=== PATIENT | male | born 1985 | race Caucasian/White ===

== ENCOUNTER 2016-03-31 21:16 | Emergency (ER) | payer BC | END 2016-04-01 00:10 | disposition home or self-care (01) | DX: F32.9 Major depressive disorder, single episode, unspecified (principal); R45.851 Suicidal ideations; F10.129 Alcohol abuse with intoxication, unspecified; G47.30 Sleep apnea, unspecified; Z87.891 Personal history of nicotine dependence ==

== ENCOUNTER 2016-11-28 20:59 | Outpatient (CLI) | payer BC | END 2016-11-28 21:00 | disposition critical access hospital (66) | LOC: EMS 20:59 | PROVIDERS: ATTEND Surgery | DX: R45.851 Suicidal ideations (principal) | CPT/HCPCS: A0425; A0429 ==

== ENCOUNTER 2016-11-28 21:10 | Emergency (ER) | payer BC ==
--- NOTE | 2016-11-28 21:23 | ED Physician Documentation ---
PD HPI MHE - Stated complaint Stated Complaint: SI - Chief complaint Chief Complaint: MHE - History obtained from History obtained from: Patient - History of Present Illness Primary symptom: Suicidal ideation, Depression Pain level now: 0 Contributing factors: Work Recently seen: Other (Similar presentation to this ED March 2016) - Additional information Additional information: patient was at a friend's house [place], became increasingly depressed and upset regarding issues he has been having at work. He is on sertraline but has been taking it intermittently. Patient made suicidal statements to his friend ricardo and thus friend called 911. Patient admits to drinking some alcohol tonight as well. Review of Systems Cardiac: reports: Reviewed and negative Respiratory: reports: Reviewed and negative GI: reports: Reviewed and negative Psychiatric: reports: Depressed, Suicidal (admits to making statements earlier tonight, although he denies feeling suicidal at the time of this HPI). denies: Homicidal PD PAST MEDICAL HISTORY - Past Medical History Respiratory: Sleep apnea Psych: Depression, Anxiety, Panic attacks - Past Surgical History Past Surgical History: Yes - Present Medications Home Medications: Ambulatory Orders Medication Instructions Recorded Confirmed Sertraline [Zoloft] 50 mg ORAL DAILY 11/28/16 11/28/16 - Allergies Allergies/Adverse Reactions: Allergies Allergy/AdvReac Type Severity Reaction Status Date / Time shellfish derived Allergy Unknown Verified 11/28/16 21:16 - Social History Does the pt smoke?: No Smoking Status: Former smoker Does the pt drink ETOH?: Yes Does the pt have substance abuse?: No - Immunizations Immunizations are current?: Yes PD ED PE NORMAL - Vitals Vital signs reviewed: Yes - General General: Alert and oriented X 3, Well developed/nourished, Other (tearful throughout H+P) - Cardiac Cardiac: RRR, No murmur - Respiratory Respiratory: No respiratory distress, Clear bilaterally - Abdomen Abdomen: Soft, Non tender PD ED PE EXPANDED - Psych Psych: Depressed, Tearful Results - Vitals Vitals: Vital Signs - 24 hr 11/28/16 11/29/16 11/29/16 21:13 00:48 07:58 Temperature 36.9 C 36.7 C Heart Rate 87 91 Respiratory 18 18 15 Rate Blood Pressure 137/61 H 121/52 L O2 Saturation 96 97 Oxygen O2 Source Room air - Labs Labs: Laboratory Tests 11/28/16 11/28/16 11/28/16 21:50 21:50 22:21 WBC 8.0 RBC 5.00 Hgb 14.3 Hct 42.1 MCV 84.2 MCH 28.6 MCHC 34.0 RDW 13.7 Plt Count 305 MPV 7.4 Neut # 3.6 Lymph # 3.5 [place] # 0.7 Eos # 0.1 Baso # 0.1 Absolute Nucleated RBC 0.00 Nucleated RBCs 0.0 Sodium 140 Potassium 3.7 Chloride 106 Carbon Dioxide 21 Anion Gap 13.0 BUN 15 Creatinine 0.9 Estimated GFR (MDRD) 100 Glucose 102 H Calcium 9.0 Urine Color YELLOW Urine Clarity CLEAR Urine pH 6.0 Ur Specific [place] 1.025 Urine Protein TRACE Urine Glucose (UA) NEGATIVE Urine Ketones NEGATIVE Urine Occult Blood NEGATIVE Urine Nitrite NEGATIVE Urine Bilirubin NEGATIVE Urine Urobilinogen 0.2 (NORMAL) Ur Leukocyte Esterase NEGATIVE Ur Microscopic Review NOT INDICATED Urine Culture Comments NOT INDICATED Salicylates < 6.0 Urine Opiates Screen Ur Oxycodone Screen Urine Methadone Screen Ur Propoxyphene Screen Acetaminophen < 10 L Ur Barbiturates Screen Ur Tricyclics Screen Ur Phencyclidine Scrn Ur Amphetamine Screen U Methamphetamines Scrn U Benzodiazepines Scrn Urine Cocaine Screen U Cannabinoids Screen Ethyl Alcohol 213.6 11/28/16 11/29/16 22:21 06:08 WBC RBC Hgb Hct MCV MCH MCHC RDW Plt Count MPV Neut # Lymph # [place] # Eos # Baso # Absolute Nucleated RBC Nucleated RBCs Sodium Potassium Chloride Carbon Dioxide Anion Gap BUN Creatinine Estimated GFR (MDRD) Glucose Calcium Urine Color Urine Clarity Urine pH Ur Specific [place] Urine Protein Urine Glucose (UA) Urine Ketones Urine Occult Blood Urine Nitrite Urine Bilirubin Urine Urobilinogen Ur Leukocyte Esterase Ur Microscopic Review Urine Culture Comments Salicylates Urine Opiates Screen NEGATIVE Ur Oxycodone Screen NEGATIVE Urine Methadone Screen NEGATIVE Ur Propoxyphene Screen NEGATIVE Acetaminophen Ur Barbiturates Screen NEGATIVE Ur Tricyclics Screen NEGATIVE Ur Phencyclidine Scrn NEGATIVE Ur Amphetamine Screen NEGATIVE U Methamphetamines Scrn NEGATIVE U Benzodiazepines Scrn NEGATIVE Urine Cocaine Screen NEGATIVE U Cannabinoids Screen NEGATIVE Ethyl Alcohol 63.2 PD MEDICAL DECISION MAKING - ED course Complexity details: reviewed old records, re-evaluated patient, considered differential, d/w patient ED course: Held until AM for SW. machine operator farmworker interviewed patient. He was sober, cooperative, calm, and denies suicidal thoughts and wants to be discharged. SW clears patient for discharge, which I agree is appropriate at this time. Departure - Departure Disposition: Home, Self Care Clinical Impression: Depression, Alcoholic intoxication Condition: Good Instructions: ED Depression, ED Alcohol Intoxication
[2016-11-28 21:59] LABS: BASOPHILS # (AUTO) 0.1 10^3/uL (0.0-0.1); EOSINOPHILS # (AUTO) 0.1 10^3/uL (0.0-0.7); EOSINOPHILS % (AUTO) 1.1 %; HCT - HEMATOCRIT 42.1 % (42.0-52.0); HGB - HEMOGLOBIN 14.3 g/dL (14.0-18.0); LYMPHOCYTES # (AUTO) 3.5 10^3/uL (1.5-3.5); LYMPHOCYTES % (AUTO) 44.1 %; MEAN CORPUSCULAR HEMOGLOBIN 28.6 pg (27.0-31.0); MEAN CORPUSCULAR VOLUME 84.2 fL (80.0-94.0); MEAN PLATELET VOLUME 7.4 fL (7.4-11.4); MONOCYTES # (AUTO) 0.7 10^3/uL (0.0-1.0); MONOCYTES % (AUTO) 8.4 %; NEUTROPHILS # (AUTO) 3.6 10^3/uL (1.5-6.6); NEUTROPHILS % (AUTO) 45.4 %; RED CELL DISTRIBUTION WIDTH 13.7 % (12.0-15.0)
[2016-11-28 22:17] LABS: BUN - BLOOD UREA NITROGEN 15 mg/dL (6-20); CARBON DIOXIDE - CO2 21 mmol/L (21-32); CHLORIDE 106 mmol/L (101-111); CREATININE 0.9 mg/dL (0.6-1.2); GFR - MDRD 100 (>89); GLUCOSE 102 mg/dL (70-100); POTASSIUM 3.7 mmol/L (3.5-5.0); SALICYLATE < 6.0 mg/dL; SODIUM 140 mmol/L (135-145)
[2016-11-28 22:24] LABS: ACETAMINOPHEN < 10 ug/mL (10-30)
[2016-11-28 22:35] LABS: BILIRUBIN,URINE NEGATIVE (NEGATIVE)
[2016-11-28 22:37] LABS: UA CHARGE (STRIP ONLY) YES; UR CULTURE IF IND NOT INDICATED
[2016-11-29 07:58] VITALS: BP 121/52
[2016-11-29] MEDS ORDERED: IBUPROFEN 600 MG TABLET PO STA (08:33)
[2016-11-29] MEDS ORDERED: IBUPROFEN 600 MG TABLET PO ONE (08:50)
[2016-11-29] MEDS ORDERED: IBUPROFEN 400 MG TABLET PO STA (09:29)
[2016-11-29] MEDS ORDERED: IBUPROFEN 400 MG TABLET PO ONE (09:36)
== END 2016-11-29 09:36 | disposition home or self-care (01) ==
LOC: EDUNIT# → ED 21:10
DX: F32.9 Major depressive disorder, single episode, unspecified (principal); F10.120 Alcohol abuse with intoxication, uncomplicated; Y90.3 Blood alcohol level of 60-79 mg/100 ml; Z87.891 Personal history of nicotine dependence
CPT/HCPCS: 36415; 80048; 80306; 80307; 80320; 80329; 81003; 85025; 99283; 99284; A9270; 81001; 87086

== ENCOUNTER 2017-08-02 22:33 | Emergency (ER) | payer BC ==
[2017-08-02] MEDS ORDERED: DEXAMETHASONE 10 MG/ML VIAL PO STA (23:04)
[2017-08-02] MEDS ORDERED: BENZONATATE 100 MG CAPSULE PO STA (23:04)
[2017-08-02] MEDS ORDERED: IPRATROPIUM/ALBUTEROL 3 ML NEB INH STA (23:04)
[2017-08-02] MEDS ORDERED: CETIRIZINE 10 MG TABLET PO STA (23:05)
[2017-08-02] MEDS ORDERED: CHERRY SYRUP 10 ML UDC PO ONE (23:17)
--- NOTE | 2017-08-02 23:21 | ED Physician Documentation ---
PD HPI URI - Stated complaint Stated Complaint: FLU SYMPTOMS - Chief complaint Chief Complaint: Resp - History obtained from History obtained from: Patient, Friend - History of Present Illness Timing - onset: How many days ago (4) Timing duration: Days (4) Timing details: Gradual onset Pain level max: 4 Pain level now: 4 Associated symptoms: Chills, Nasal congestion, Rhinorrhea, Dry cough, Dyspnea ( wheezing). No: Fever Contributing factors: Sick contact Improves by: Rest Worsened by: Activity, Breathing Recently seen: Emergency Dept (Patient was seen at [facility] 2 days ago and diagnosed with "atypical pneumonia". Started on doxycycline. States he is feeling more short of breath.) Review of Systems Constitutional: denies: Fever Respiratory: reports: Dyspnea, Cough, Wheezing GI: denies: Vomiting, Diarrhea Skin: denies: Rash Musculoskeletal: denies: Neck pain, Back pain PD PAST MEDICAL HISTORY - Past Medical History Past Medical History: Yes Cardiovascular: None Respiratory: Sleep apnea Endocrine/Autoimmune: None GI: None : None HEENT: None Psych: Depression, Anxiety, Panic attacks Musculoskeletal: None Derm: None - Past Surgical History Past Surgical History: Yes - Present Medications Home Medications: Ambulatory Orders Medication Instructions Recorded Confirmed Sertraline [Zoloft] 50 mg ORAL DAILY 11/28/16 11/28/16 Albuterol Sulf [Ventolin Hfa 1 - 2 puffs INH Q4HR PRN #1 inhaler 08/02/17 Inhaler] Benzonatate [Tessalon Perle] 100 - 200 mg PO TID PRN #30 capsule 08/02/17 Cetirizine HCl/Pseudoephedrine 1 each PO BID PRN #30 tab.er.12h 08/02/17 [Zyrtec-D Tablet] - Allergies Allergies/Adverse Reactions: Allergies Allergy/AdvReac Type Severity Reaction Status Date / Time shellfish derived Allergy Unknown Verified 08/02/17 22:40 - Social History Does the pt smoke?: No Smoking Status: Never smoker Does the pt drink ETOH?: Yes Does the pt have substance abuse?: No - Immunizations Immunizations are current?: Yes - POLST Patient has POLST: No PD ED PE NORMAL - Vitals Vital signs reviewed: Yes - General General: Alert and oriented X 3, No acute distress - HEENT HEENT: PERRL, Ears normal, Moist mucous membranes, Pharynx benign - Neck Neck: Supple, no meningeal sign, No adenopathy - Cardiac Cardiac: RRR, Strong equal pulses - Respiratory Respiratory: No respiratory distress, Other (Diminished breath sounds bilaterally with wheezing) - Abdomen Abdomen: Soft, Non tender, Non distended - Derm Derm: Warm and dry - Neuro Neuro: Alert and oriented X 3 - Psych Psych: Normal mood, Normal affect Results - Vitals Vitals: Vital Signs - 24 hr 08/02/17 08/02/17 08/02/17 22:35 23:21 23:51 Temperature 37.7 C H 36.4 C L Heart Rate 91 94 83 Respiratory 18 18 16 Rate Blood Pressure 148/74 H 139/72 H O2 Saturation 97 97 Oxygen O2 Source Room air PD MEDICAL DECISION MAKING - ED course Complexity details: reviewed old records ([facility] emergency department records), re-evaluated patient, considered differential, d/w patient ED course: Patient is a 31-year-old male with what appears to be a viral upper respiratory infection complicated by wheezing. Given dexamethasone and nebulizer treatments here. Improved aeration and feels significantly improved. Will prescribe an inhaler for home. Will also place on antitussives medication and follow-up closely with his doctor. Patient counseled regarding signs and symptoms for which I believe and urgent re-evaluation would be necessary. Patient with good understanding of and agreement to plan and is comfortable going home at this time This document was made in part using voice recognition software. While efforts are made to proofread this document, sound alike and grammatical errors may occur. No hypoxia. No respiratory distress. Negative chest x-ray 2 days ago. Departure - Departure Disposition: 01 Home, Self Care Clinical Impression: Viral URI with cough Condition: Good Instructions: ED URI Viral W Wheezing Follow-Up: YEE TEJEDA [Primary Care Provider] - Within 1 week Prescriptions: Albuterol Sulf [Ventolin Hfa Inhaler] 1 - 2 puffs INH Q4HR PRN #1 inhaler PRN Reason: Shortness Of Air/Wheezing Benzonatate [Tessalon Perle] 100 - 200 mg PO TID PRN #30 capsule PRN Reason: Cough Cetirizine HCl/Pseudoephedrine [Zyrtec-D Tablet] 1 each PO BID PRN #30 tab.er.12h PRN Reason: Nasal Congestion Comments: Return if you worsen. Continue to use the inhaler at home. The average cough will last approximately 2-3 weeks. Discharge Date/Time: 08/02/17 23:51
[2017-08-02 23:52] VITALS: BP 139/72
== END 2017-08-02 23:51 | disposition home or self-care (01) ==
LOC: ED 22:33
DX: J06.9 Acute upper respiratory infection, unspecified (principal); B97.89 Other viral agents as the cause of diseases classified elsewhere; R05 Cough
CPT/HCPCS: 94640; 99283; A9270

== ENCOUNTER 2017-08-28 07:19 | Emergency (ER) | payer BC, OTHER ==
[2017-08-28 07:31] VITALS: BP 131/60
--- NOTE | 2017-08-28 08:01 | ED Physician Documentation ---
PD HPI LOWER EXT INJURY - Stated complaint Stated Complaint: R FOOT PX - Chief complaint Chief Complaint: Ext Problem - History obtained from History obtained from: Patient, Family - History of Present Illness PD HPI LOW EXT INJURY LOCATION: Right, Ankle Type of injury: Twist Where injury occurred: Home Timing - onset: Last night Timing - duration: Hours Timing - details: Abrupt onset, Still present Improved by: Rest, Ice, Immobilization Worsened by: Moving, Palpating Associated symptoms: Swelling Contributing factors: No: Anticoagulated Similar symptoms before: Has not had sx before Recently seen: Not recently seen - Additional information Additional information: 31-year-old male went to stepdown out of his truck last night and stepped onto some soft ground and rolled his ankle. He has pain on the lateral aspect of his ankle and he is not able to bear weight on this. He did ice it overnight and this morning he is still able to bear weight. He is complaining of pain to the lateral ankle and swelling. Review of Systems Constitutional: denies: Fever Respiratory: denies: Cough GI: denies: Vomiting Musculoskeletal: reports: Extremity pain, Joint pain, Extremity swelling, Joint swelling, Pain with weight bearing. denies: Neck pain, Back pain Neurologic: denies: Generalized weakness, Focal weakness, Numbness PD PAST MEDICAL HISTORY - Past Medical History Cardiovascular: None Respiratory: Sleep apnea Endocrine/Autoimmune: None GI: None : None HEENT: None Psych: Depression, Anxiety, Panic attacks Musculoskeletal: None Derm: None - Past Surgical History Past Surgical History: Yes - Present Medications Home Medications: Ambulatory Orders Medication Instructions Recorded Confirmed HYDROcod/ACETAM 5/325 [[place] 5/325] 1 - 2 ea PO Q6H PRN #8 tablet 08/28/17 - Allergies Allergies/Adverse Reactions: Allergies Allergy/AdvReac Type Severity Reaction Status Date / Time shellfish derived Allergy Unknown Verified 08/02/17 22:40 - Social History Does the pt smoke?: No Smoking Status: Never smoker Does the pt drink ETOH?: Yes Does the pt have substance abuse?: No - Immunizations Immunizations are current?: Yes - POLST Patient has POLST: No PD ED PE NORMAL - Vitals Vital signs reviewed: Yes (hypertensive mild ) - General General: Alert and oriented X 3, No acute distress, Well developed/nourished - HEENT HEENT: Atraumatic, PERRL, EOMI - Neck Neck: Supple, no meningeal sign - Respiratory Respiratory: No respiratory distress - Derm Derm: Normal color, Warm and dry, No rash - Extremities Extremities: No deformity, Other (There is swelling and tenderness to the lateral aspect of the right ankle over the talofibular ligament. There is not specific tenderness to the proximal 5th. There is tenderness and swelling over the dorsal aspect of the ankle and the distal n/v is intact. ) Results - Vitals Vitals: Vital Signs - 24 hr 08/28/17 07:25 Temperature 36.5 C Heart Rate 57 L Respiratory 16 Rate Blood Pressure 131/60 H O2 Saturation 98 Oxygen O2 Source Room air - Rads (name of study) right ankle Radiology: Prelim report reviewed (Impression: 1. Lateral soft tissue swelling without evidence for fracture.), EMP read indepedently, See rad report Procedures - Splint (location) right ankle Splint applied by: Nurse Type of splint: Ankle airsplint Other: Patient tolerated well, No complications, Neurovascular intact, Good alignment PD MEDICAL DECISION MAKING - ED course Complexity details: reviewed results, re-evaluated patient, considered differential, d/w patient, d/w family ED course: 31-year-old male appears to have rolled his ankle and sprained it. Is no evidence of fracture on x-ray and he is placed into an ankle stirrup. - Sepsis Event Vital Signs: Vital Signs - 24 hr 08/28/17 07:25 Temperature 36.5 C Heart Rate 57 L Respiratory 16 Rate Blood Pressure 131/60 H O2 Saturation 98 Oxygen O2 Source Room air Departure - Departure Disposition: 01 Home, Self Care Clinical Impression: Ankle sprain Qualifiers: Encounter type: initial encounter Involved ligament of ankle: calcaneofibular ligament Laterality: right Qualified Code(s): S93.411A - Sprain of calcaneofibular ligament of right ankle, initial encounter Condition: Stable Instructions: ED Sprain Ankle W X Ray Follow-Up: YEE TEJEDA [Primary Care Provider] - Prescriptions: HYDROcod/ACETAM 5/325 [[place] 5/325] 1 - 2 ea PO Q6H PRN #8 tablet PRN Reason: Pain Discharge Date/Time: 08/28/17 10:09
--- NOTE | 2017-08-28 08:54 | XRAY Report ---
Procedure Date: 08/28/2017 Accession Number: [id number] / [id number] Procedure: XR - Ankle 3 View RT CPT Code: FULL RESULT: EXAM: RIGHT ANKLE RADIOGRAPHY EXAM DATE: 08/28/2017 08:31 AM. CLINICAL HISTORY: Swelling and pain. Stepped into pothole yesterday afternoon, rolling ankle with lateral pain. COMPARISON: None. TECHNIQUE: 3 views. FINDINGS: Bones: Smooth exostosis along posterior distal tibia. No fracture or aggressive appearing osseous lesion. Joints: Normal. No effusion. No subluxations. The ankle mortise is normally aligned. Soft Tissues: Lateral soft tissue swelling. IMPRESSION: 1. Lateral soft tissue swelling without evidence for fracture. RADIA
== END 2017-08-28 10:09 | disposition home or self-care (01) ==
LOC: ED 07:19
DX: S93.411A Sprain of calcaneofibular ligament of right ankle, initial encounter (principal); X50.1XXA Overexertion from prolonged static or awkward postures, initial encounter; Y92.009 Unspecified place in unspecified non-institutional (private) residence as the place of occurrence of the external cause
CPT/HCPCS: 99283

== ENCOUNTER 2018-05-08 18:53 | Outpatient (CLI) | payer OTHER | END 2018-05-08 18:54 | disposition critical access hospital (66) | LOC: EMS 18:53 | PROVIDERS: ATTEND Surgery | DX: R45.851 Suicidal ideations (principal); F43.10 Post-traumatic stress disorder, unspecified | CPT/HCPCS: A0425; A0429 ==

== ENCOUNTER 2018-05-08 19:13 | Emergency (ER) | payer BC, OTHER ==
[2018-05-08 19:46] LABS: BASOPHILS # (AUTO) 0.1 10^3/uL (0.0-0.1); BASOPHILS % (AUTO) 0.5 %; EOSINOPHILS % (AUTO) 0.4 %; HGB - HEMOGLOBIN 15.3 g/dL (14.0-18.0); LYMPHOCYTES # (AUTO) 2.7 10^3/uL (1.5-3.5); LYMPHOCYTES % (AUTO) 23.5 %; MEAN CORPUSCULAR HEMOGLOBIN 29.2 pg (27.0-31.0); MEAN CORPUSCULAR VOLUME 85.8 fL (80.0-94.0); MEAN PLATELET VOLUME 7.8 fL (7.4-11.4); MONOCYTES % (AUTO) 8.7 %; NEUTROPHILS # (AUTO) 7.7 10^3/uL (1.5-6.6); NEUTROPHILS % (AUTO) 66.9 %; PLT - PLATELET COUNT 217 10^3/uL (130-450); RED BLOOD COUNT 5.23 10^6/uL (4.70-6.10); RED CELL DISTRIBUTION WIDTH 13.4 % (12.0-15.0); WHITE BLOOD COUNT 11.6 x10^3/uL (4.8-10.8)
[2018-05-08 19:59] LABS: ACETAMINOPHEN < 10 ug/mL (10-30); ALBUMIN 4.7 g/dL (3.2-5.5); ALBUMIN/GLOBULIN RATIO 1.4 (1.0-2.2); ALKALINE PHOSPHATASE 50 IU/L (42-121); ALT ALANINE AMINOTRANSFERASE 18 IU/L (10-60); AST ASPARTATE AMINOTRANSFERASE 16 IU/L (10-42); BUN - BLOOD UREA NITROGEN 20 mg/dL (6-20); CALCIUM 9.4 mg/dL (8.5-10.3); CARBON DIOXIDE - CO2 23 mmol/L (21-32); CHLORIDE 101 mmol/L (101-111); CREATININE 0.9 mg/dL (0.6-1.2); GFR - MDRD 98 (>89); GLUCOSE 95 mg/dL (70-100); LIPASE 33 U/L (22-51); SALICYLATE < 6.0 mg/dL; SODIUM 135 mmol/L (135-145); TOTAL PROTEIN 8.1 g/dL (6.7-8.2)
--- NOTE | 2018-05-08 20:23 | ED Physician Documentation ---
PD HPI MHE - Stated complaint Stated Complaint: SI - Chief complaint Chief Complaint: General - History obtained from History obtained from: Patient - History of Present Illness Primary symptom: Suicidal ideation, Depression. 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 Was hospitalized at [facility] for [facility] and he did not feel that it was helpful. He signed out and was given Telepsych visit post discharge. Not had appt with provider as yet. No further counseling (just the single telepsych appt).), How many months ago (many months of depression and anxiety due to PTSD/depressive attitude.) Contributing factors: Family (he felt upset at home today and told his mother he was thinking of killing himself. She called 911 for help and patient was brought here. He did not have specific plan for hurting himself.). No: Substance abuse - ETOH, Substance abuse - drugs Similar symptoms before: Diagnosis (PTSD and depression) Recently seen: Admitted (early March for similar symptoms) Review of Systems Constitutional: denies: Fever, Chills Nose: denies: Rhinorrhea / runny nose, Congestion Throat: denies: Sore throat Respiratory: denies: Cough GI: denies: Vomiting, Diarrhea Skin: denies: Rash Musculoskeletal: denies: Neck pain, Back pain PD PAST MEDICAL HISTORY - Past Medical History Cardiovascular: None Respiratory: Sleep apnea Endocrine/Autoimmune: None GI: None : None HEENT: None Psych: Depression, Anxiety, Panic attacks Musculoskeletal: None Derm: None - Past Surgical History Past Surgical History: Yes - Present Medications Home Medications: Ambulatory Orders Medication Instructions Recorded Confirmed HYDROcod/ACETAM 5/325 [[place] 5/325] 1 - 2 ea PO Q6H PRN #8 tablet 08/28/17 - Allergies Allergies/Adverse Reactions: Allergies Allergy/AdvReac Type Severity Reaction Status Date / Time shellfish derived Allergy Unknown Verified 08/02/17 22:40 - Social History Does the pt smoke?: No Smoking Status: Never smoker Does the pt drink ETOH?: Yes Does the pt have substance abuse?: No - Immunizations Immunizations are current?: Yes - POLST Patient has POLST: No PD ED PE NORMAL - Vitals Vital signs reviewed: Yes - General General: Alert and oriented X 3, No acute distress, Well developed/nourished - HEENT HEENT: Pharynx benign - Neck Neck: Supple, no meningeal sign, No adenopathy - Cardiac Cardiac: No murmur - Respiratory Respiratory: Clear bilaterally - Abdomen Abdomen: Soft, Non tender - Back Back: No CVA TTP - Derm Derm: Normal color, Warm and dry - Neuro Neuro: Alert and oriented X 3, No motor deficit, Normal speech Results - Vitals Vitals: Vital Signs - 24 hr 05/08/18 05/08/18 19:16 19:38 Temperature 36.5 C Heart Rate 61 61 Respiratory 16 16 Rate Blood Pressure 123/99 H 127/99 H O2 Saturation 98 98 Oxygen O2 Source Room air - Labs Labs: Laboratory Tests 05/08/18 05/08/18 05/08/18 19:40 19:40 19:40 WBC 11.6 H RBC 5.23 Hgb 15.3 Hct 44.9 MCV 85.8 MCH 29.2 MCHC 34.0 RDW 13.4 Plt Count 217 MPV 7.8 Neut # (Auto) 7.7 H Lymph # (Auto) 2.7 [place] # (Auto) 1.0 Eos # (Auto) 0.0 Baso # (Auto) 0.1 Absolute Nucleated RBC 0.00 Nucleated RBC % 0.0 Sodium 135 Potassium 3.8 Chloride 101 Carbon Dioxide 23 Anion Gap 11.0 BUN 20 Creatinine 0.9 Estimated GFR (MDRD) 98 Glucose 95 Calcium 9.4 Total Bilirubin 1.0 AST 16 ALT 18 Alkaline Phosphatase 50 Total Protein 8.1 Albumin 4.7 Globulin 3.4 Albumin/Globulin Ratio 1.4 Lipase 33 TSH 1.80 Urine Color Urine Clarity Urine pH Ur Specific [place] Urine Protein Urine Glucose (UA) Urine Ketones Urine Occult Blood Urine Nitrite Urine Bilirubin Urine Urobilinogen Ur Leukocyte Esterase Ur Microscopic Review Urine Culture Comments Salicylates < 6.0 Urine Opiates Screen Ur Oxycodone Screen Urine Methadone Screen Ur Propoxyphene Screen Acetaminophen < 10 L Ur Barbiturates Screen Ur Tricyclics Screen Ur Phencyclidine Scrn Ur Amphetamine Screen U Methamphetamines Scrn U Benzodiazepines Scrn Urine Cocaine Screen U Cannabinoids Screen Ethyl Alcohol < 5.0 05/08/18 22:25 WBC RBC Hgb Hct MCV MCH MCHC RDW Plt Count MPV Neut # (Auto) Lymph # (Auto) [place] # (Auto) Eos # (Auto) Baso # (Auto) Absolute Nucleated RBC Nucleated RBC % Sodium Potassium Chloride Carbon Dioxide Anion Gap BUN Creatinine Estimated GFR (MDRD) Glucose Calcium Total Bilirubin AST ALT Alkaline Phosphatase Total Protein Albumin Globulin Albumin/Globulin Ratio Lipase TSH Urine Color YELLOW Urine Clarity CLEAR Urine pH 6.0 Ur Specific [place] 1.025 Urine Protein NEGATIVE Urine Glucose (UA) NEGATIVE Urine Ketones 40 H Urine Occult Blood NEGATIVE Urine Nitrite NEGATIVE Urine Bilirubin NEGATIVE Urine Urobilinogen 0.2 (NORMAL) Ur Leukocyte Esterase NEGATIVE Ur Microscopic Review NOT INDICATED Urine Culture Comments NOT INDICATED Salicylates Urine Opiates Screen NEGATIVE Ur Oxycodone Screen NEGATIVE Urine Methadone Screen NEGATIVE Ur Propoxyphene Screen NEGATIVE Acetaminophen Ur Barbiturates Screen NEGATIVE Ur Tricyclics Screen NEGATIVE Ur Phencyclidine Scrn NEGATIVE Ur Amphetamine Screen NEGATIVE U Methamphetamines Scrn NEGATIVE U Benzodiazepines Scrn NEGATIVE Urine Cocaine Screen NEGATIVE U Cannabinoids Screen POSITIVE H Ethyl Alcohol PD MEDICAL DECISION MAKING - ED course Complexity details: considered differential (Not clear if would benefit from hospitalization. He was not sure if Crisis Center was what he wanted. Shared decision to stay in ER overnight, to be safe place, and see SW in AM. Hopefully will be able to set up counseling and follow up for him. Could Rx short term med for anxiety. ), d/w patient ED course: Patient opts to stay the night and talk with SW in the morning. Departure - Departure Clinical Impression: Post traumatic stress disorder (PTSD), Anxiety, Suicidal ideation Condition: Stable Record reviewed to determine appropriate education?: Yes
[2018-05-08 23:33] LABS: MUDS CUTOFF CONCENTRATIONS CUTOFF CONC BELOW:
[2018-05-08 23:34] LABS: BILIRUBIN,URINE NEGATIVE (NEGATIVE); GLUCOSE, URINE (UA) NEGATIVE (NEGATIVE); KETONES,URINE (UA) 40 mg/dL (NEGATIVE); LEUKOCYTE ESTERASE, URINE NEGATIVE (NEGATIVE); NITRITE,URINE NEGATIVE (NEGATIVE); OCCULT BLOOD,URINE NEGATIVE (NEGATIVE); PROTEIN,URINE NEGATIVE (NEGATIVE); UROBILINOGEN,URINE 0.2 (NORMAL) E.U./dL (NORMAL)
[2018-05-08 23:44] LABS: CLARITY,URINE CLEAR (CLEAR)
[2018-05-08 23:45] LABS: AMPHETAMINE SCREEN,URINE NEGATIVE (NEGATIVE); BENZODIAZEPINES SCREEN, URINE NEGATIVE (NEGATIVE); COCAINE SCREEN URINE NEGATIVE (NEGATIVE); METHADONE SCREEN, URINE NEGATIVE (NEGATIVE); METHAMPHETAMINES SCREEN, URINE NEGATIVE (NEGATIVE); OPIATE SCREEN, URINE NEGATIVE (NEGATIVE); OXYCODONE SCREEN, URINE NEGATIVE (NEGATIVE); PROPOXYPHENE SCREEN, URINE NEGATIVE (NEGATIVE); TRICYCLIC ANTIDEPRESSANT,URINE NEGATIVE (NEGATIVE)
--- NOTE | 2018-05-09 08:59 | ED Physician Documentation ---
ED Addendum - Addendum Addendum: 05/09/18 07:00 AM The patient's care was turned over to me by the off going emergency physician Dr. Coronado for follow-up on the recommendations from social work. Social work came and evaluated the patient in the emergency department, the patient contracts for safety and social work recommends discharge home. They recommend outpatient follow-up for ongoing management of his psychiatric issues. The patient currently does not want to be hospitalized or any new medications. The patient was instructed to return to the emergency department immediately for any worsening or any concerns.
[2018-05-09 09:07] VITALS: BP 127/75
== END 2018-05-09 09:15 | disposition home or self-care (01) ==
LOC: EDUNIT# → ED 19:13
DX: R45.851 Suicidal ideations (principal); F41.9 Anxiety disorder, unspecified; F32.9 Major depressive disorder, single episode, unspecified; F43.10 Post-traumatic stress disorder, unspecified
CPT/HCPCS: 36415; 80053; 80306; 80307; 80320; 80329; 81001; 81003; 83690; 84443; 85025; 87086; 99283

== ENCOUNTER 2018-09-13 10:43 | Outpatient (CLI) | payer OTHER | END 2018-09-13 10:44 | disposition home or self-care (01) | LOC: SC 10:43 | PROVIDERS: ATTEND Nurse Practitioner Family | DX: G47.33 Obstructive sleep apnea (adult) (pediatric) (principal); G47.00 Insomnia, unspecified | CPT/HCPCS: 99212; 99215 ==

== ENCOUNTER 2018-09-20 19:31 | Outpatient (CLI) | payer OTHER | END 2018-09-20 19:32 | disposition home or self-care (01) | LOC: SC 19:31 | PROVIDERS: ATTEND Nurse Practitioner Family | DX: G47.33 Obstructive sleep apnea (adult) (pediatric) (principal); G47.61 Periodic limb movement disorder | CPT/HCPCS: 95810 ==

== ENCOUNTER 2018-10-24 15:35 | Outpatient (CLI) | payer OTHER ==
[2018-10-24 16:52] VITALS: BP 90/60
--- NOTE | 2018-10-24 16:52 | SLEEP CARE CONSULTATION ---
Information from patient questionnaire entered by Humaira Callaway. I have reviewed and concur with the information entered by Humaira Callaway. This document represents the service I personally performed and the decisions made by me, Suzan Coronado RN, MSN, SUPERVISOR SE[employer]. History of Present Illness Initial [place] Sleepiness Scale score: 5 Current [place] Sleepiness Scale score: 3 Additional HPI information: AKIKO KEANE returns for follow up of the recently performed polysomnography. The patient was informed of the following polysomnography findings: I explained the pathophysiology behind obstructive sleep apnea. We then spent quite a bit of time discussing different treatment options. For mild obstructive sleep apnea, surgery and oral appliance are alternatives to nasal CPAP therapy but in moderate or severe cases, nasal CPAP is the most effective and reliable treatment. Because apnea is primarily in supine position, then positional management therapy could be effective. I reviewed the impact of weight changes on sleep apnea and strongly recommended losing weight. After some discussion, the patient would like to restart nasal CPAP therapy. His device was obtained through [employer] in 2014. He has not used for years and supplies need to be updated. I will change his pressure to autoCPAP set at 4- [id number] will be ordered with rationale explained. A manual titration study will be ordered if unable to find optimal pressure with office adjustments. He uses aResMed [id number]. I reviewed how CPAP machine works and what to expect when using the machine. Using CPAP every night in order to get used to it was emphasized. Patient advised to put CPAP mask on before getting into bed so as not to fall asleep without CPAP. To assist acclimation to CPAP use, it could also be used for a short time during day while reading or watching TV. The patient was instructed to call the CPAP supplier to discuss any mechanical problem that may occur. If the mask given is uncomfortable or is difficult to keep on through the night even with adjustment, contact the CPAP supplier as many will replace with another mask style if notified before 30 days. If snoring or perceives is not getting enough air or too much air from the machine, notify this office. [facility] patient education PAP tips and Non Pap treatment pamphlets reviewed and given to patient. Patient counseled not drink alcohol less than 4 hours before bedtime as it can increase snoring and apnea. Patient does not drink alcohol. Patient was cautioned about risks of drowsy driving until sleepiness symptoms resolve. Patient denies drowsy driving. Sleep Study - Polysomnography Polysomnography findings: The quality of the study is good. The patient had normal sleep efficiency. The sleep architecture was abnormal for sleep fragmentation and reduced amount of time spent in REM sleep. Respiratory monitoring showed mild obstructive sleep apnea-hypopnea (AHI = 12.6) associated with frequent arousals, oxyhemoglobin desaturation and mild hypoxia (bri oxygen saturation of 81%). The respiratory events occurred almost exclusively during supine sleep (supine AHI = 41.4; non-supine = 1.33). Snore was light in intensity. There was moderate periodic leg movement of sleep. Cardiac rhythm was normal sinus rhythm without significant arrhythmia. No abnormal behavior (parasomnia) observed during the night. Allergies and Home Medications Known drug allergies: Yes (shellfish, pollen, latex) Home medication list reviewed: Yes (no medications ) Review of Systems Review of systems same as previous: Yes Physical Exam Blood Pressure: 90/60 Cuff size: long Heart Rate: 62 O2 Saturation: 98 Height: 5 ft 11 in Weight (kg): 88.178 kg Body Mass Index: 27.1 BMI Classification: Overweight Impression and Plan 1. Obstructive Sleep Apnea-Hypopnea Syndrome, mild but severe supine, with lowest oxygen saturation of 81%. Obviously this is the cause of the patients symptoms of unrefreshed sleep, and excessive daytime sleepiness. Even with loss of significant amount of weight( 56 pounds) from first sleep study in November 2014 , he continues to have sleep apnea that is severe on his back in his preferred sleep position. As mentioned above, the patient will be started on nasal autoCPAP therapy with pressure set at 4-15 cmH2O. A manual titration study will be completed if unable to find optimal treatment pressure with office adjustments. He currently has a 4 year old CPAP that he has not used for years. He was advised to clean thoroughly as shown with sample device and update all equipment with new prescription as [facility] is [facility] if [facility] current [facility]AP as not over 5 years old. If not , I will have it checked for accuracy with a water manometer. A copy of compliance guidelines will be given for reference at check out. Because the apnea is more severe supine, I instructed to avoid sleeping supine using pillow positioning until able to start CPAP use. * Start CPAP pressure at 4-15 cmH2O * Update all supplies. * Check CPAP device for pressure accuracy. * Avoid supine sleep until can start CPAP. * Notify me if snoring with mask or feeling that the pressure is too much or too little * Attempt to lose weight * Return for follow up in 6 weeks after starts CPAP, or sooner if concerns arise I spent 100% of this 30 minute visit face to face with the patient with greater than 50% of this was spent time counseling the patient and coordination of care.
== END 2018-10-24 15:36 | disposition home or self-care (01) ==
LOC: SC 15:35
PROVIDERS: ATTEND Nurse Practitioner Family
DX: G47.33 Obstructive sleep apnea (adult) (pediatric) (principal)
CPT/HCPCS: 99212; 99214

== ENCOUNTER 2019-04-04 08:43 | Outpatient (CLI) | payer OTHER ==
[2019-04-04 09:35] VITALS: BP 120/70
--- NOTE | 2019-04-04 09:35 | SLEEP CARE CONSULTATION ---
Information from patient questionnaire entered by Humaira Callaway. I have reviewed and concur with the information entered by Humaira Callaway. This document represents the service I personally performed and the decisions made by me, Suzan Coronado, RN, MSN, LOGGING OPERATIONS INSPECTOR. History of Present Illness Previous diagnosis: Moderate (september 2018 after weight loss ), Very Severe, Obstructive Sleep Apnea-Hypopnea Syndrome AHI: 12.6 (severe 41.4 supine) Reason for follow up: other (5 month) Equipment type: CPAP [facility] Mask style: Full face Mask brand: Resmed Backup mask available: Yes Last cushion change: 5 months ago HPI additional information: Patient stopped using CPAP due to discomfort of air pressure causing him to wake bloated and uncomfortable and taking a few hours to resolve. He was not aware he could call to have pressure adjusted until he could get a an appointment. Subjective Patient concerns: reports: aerophagia, condensation in mask/hose (waking him - I looked at his device and hose temp set at 60degrees ), dry mouth, nose, throat (severe). denies: mask discomfort, air blowing in eyes, mask leak noise, epistaxis Observed to snore while using device: No Current pressure setting perceived as: too high On therapy, patient: reports: sleeping better, more rested overall (when pressure comfortable ) Initial [place] Sleepiness Scale score: 5 Current [place] Sleepiness Scale score: 10 Allergies and Home Medications Known drug allergies: No Home medication list reviewed: No Review of Systems Review of systems same as previous: Yes Physical Exam Blood Pressure: 120/70 Heart Rate: 70 O2 Saturation: 98 Height: 5 ft 11 in Weight: 219 lb 6.4 oz Body Mass Index: 30.6 BMI Classification: Obesity Class 1 Impression and Plan 1. Obstructive Sleep Apnea-Hypopnea Syndrome, mild. Patient stopped treatment last fall due to severe aerophagia and unaware he could call to change pressure so stopped until he could come in to appointment. When he uses CPAP he notes benefit in sleep quality and restfulness. No current CPAP data. Review of past data shows he was on a [id number] CPAP pressure with median pressure of 12. 1cm , 95th percentile of 14.8cm and maximum of 16.5cmH20. It was supposed to be reset at [id number] per last visit note. Thus I will drop his pressure range to [id number]. If he feels this range is still causing aerophagia or if it is insufficient, he is to call me right away to adjust for comfort. He was also experiencing dryness symptoms. This can be reduced with increasing the CPAP humidity as shown on his CPAP device and the heated hose can be increased if condensation. I gave him printed instructions with rationale for why to change settings. We changed his hose to 77 degrees and the humidity to auto with instructions how to change to manual and increase as needed. Patient's apnea severity and rationale for treatment to reduce apnea, improve sleep quality and reduce cardiovascular and cerebrovascular events was reviewed. I also reviewed the benefit of consistent device use of CPAP for depression/anxiety, PTSD. Since his apena is primarily supine, he is to avoid supine sleep with pillow positioning if unable to use CPAP. 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 He likes his new job and is working with [employer]. He is advised now to use CPAP with all sleep for his health benefit as well as his job. * * Change CPAP pressure to 5-10 cmH2O * Use CPAP with all sleep * Adjust humidity and heated hose * Notify me if snoring with mask or feeling that the pressure is too much or too little * Attempt to lose weight * Call this office if any problems using CPAP * Return for follow up in 1-2 months, or sooner if concerns arise Time Spent with Patient (minutes): 30 I spent 100% of this visit face to face with the patient with greater than 50% of this was spent time counseling the patient and coordination of care.
== END 2019-04-04 08:44 | disposition home or self-care (01) ==
LOC: SC 08:43
PROVIDERS: ATTEND Nurse Practitioner Family
DX: G47.33 Obstructive sleep apnea (adult) (pediatric) (principal)
CPT/HCPCS: 99212; 99214

== ENCOUNTER 2020-09-28 18:43 | Outpatient (CLI) | payer OTHER | END 2020-09-28 18:44 | disposition critical access hospital (66) | LOC: EMS 18:43 | DX: R55 Syncope and collapse (principal) | CPT/HCPCS: A0425; A0427 ==

== ENCOUNTER 2020-09-28 19:10 | Emergency (ER) | payer OTHER ==
--- NOTE | 2020-09-28 19:21 | ED Physician Documentation ---
PD HPI ALTERED MENTAL STATUS - Stated complaint Stated Complaint: SYNCOPE - Chief complaint Chief Complaint: Neuro - History obtained from History obtained from: Patient, EMS - Additional information Additional information: 34-year-old gentleman had just gotten off a 72-hour shift at work and was hanging out with some friends and used some THC. He started to feel severe and painful ear ringing then got sweaty dizzy and passed out. He was unconscious for maybe 90 seconds. He feels back to normal now. Review of Systems Ten Systems: 10 systems reviewed and negative Constitutional: reports: Chills, Fatigue, Sweats Cardiac: denies: Chest pain / pressure, Palpitations Respiratory: denies: Dyspnea, Cough PD PAST MEDICAL HISTORY - Past Medical History Cardiovascular: None Respiratory: Sleep apnea Endocrine/Autoimmune: None GI: None : None HEENT: None Psych: Depression, Anxiety, Panic attacks Musculoskeletal: None Derm: None - Past Surgical History Past Surgical History: Yes - Present Medications Home Medications: Ambulatory Orders Medication Instructions Recorded Confirmed Venlafaxine HCl [Effexor Xr] 150 mg PO 09/28/20 - Allergies Allergies/Adverse Reactions: Allergies Allergy/AdvReac Type Severity Reaction Status Date / Time shellfish derived Allergy Unknown Verified 09/28/20 19:21 - Social History Does the pt smoke?: No Smoking Status: Never smoker Does the pt drink ETOH?: Yes Does the pt have substance abuse?: No - Immunizations Immunizations are current?: Yes - POLST Patient has POLST: No PD ED PE NORMAL - Vitals Vital signs reviewed: Yes - General General: Alert and oriented X 3, No acute distress - HEENT HEENT: PERRL, EOMI, Pharynx benign - Neck Neck: Supple, no meningeal sign, No bony TTP - Cardiac Cardiac: RRR, No murmur - Respiratory Respiratory: No respiratory distress, Clear bilaterally - Abdomen Abdomen: Non tender - Derm Derm: Normal color, Warm and dry - Extremities Extremities: No edema, No calf tenderness / cord - Neuro Neuro: Alert and oriented X 3, Normal speech Results - Vitals Vitals: Vital Signs - 24 hr 09/28/20 09/28/20 19:14 20:24 Temperature 36.8 C Heart Rate 52 L 61 Respiratory 13 18 Rate Blood Pressure 125/70 125/68 O2 Saturation 100 100 Oxygen O2 Source Room air - EKG (time done) 1919 Rate: Rate (enter#) (51) Rhythm: NSR [place]: Normal Intervals: Normal ME QRS: Normal Ischemia: Normal ST segments - Labs Labs: Laboratory Tests 09/28/20 09/28/20 19:26 19:26 WBC 9.7 RBC 4.39 L Hgb 13.0 L Hct 39.3 L MCV 89.5 MCH 29.6 MCHC 33.1 RDW 12.9 Plt Count 197 MPV 9.0 Neut # (Auto) 6.0 Lymph # (Auto) 2.5 [place] # (Auto) 1.0 Eos # (Auto) 0.1 Baso # (Auto) 0.0 Absolute Nucleated RBC 0.00 Nucleated RBC % 0.0 Sodium 138 Potassium 3.7 Chloride 103 Carbon Dioxide 27 Anion Gap 8.0 BUN 22 H Creatinine 1.4 H Estimated GFR (MDRD) 58 L Glucose 111 H Calcium 8.4 L Total Bilirubin 0.9 AST 323 H ALT 108 H Alkaline Phosphatase 40 L Total Protein 6.5 L Albumin 4.2 Globulin 2.3 Albumin/Globulin Ratio 1.8 Lipase 37 PD MEDICAL DECISION MAKING - ED course ED course: 34-year-old gentleman presents after an episode of syncope which is likely multifactorial related to fatigue from a long shift at work and THC use. We will check an EKG and basic labs. Discussed abnormal liver enzymes and renal function with him. He will have them rechecked. He has been an alcoholic in the past but has not been drinking in the last 3 years or so. No Tylenol use. No right upper quadrant pain. Departure - Departure Disposition: 01 Home, Self Care Clinical Impression: Syncope Condition: Good Record reviewed to determine appropriate education?: Yes Instructions: ED Fainting Unkn Cause Comments: He did have some abnormal labs today, BUN of 22, creatinine of 1.4, AST of 323, ALT of 108. These need to get rechecked with your primary care physician in a week or 2. Return for new or worsening symptoms. Drink plenty of fluids, avoid drug and alcohol use. Discharge Date/Time: 09/28/20 20:13
[2020-09-28 19:31] LABS: BASOPHILS % (AUTO) 0.4 %; EOSINOPHILS # (AUTO) 0.1 10^3/uL (0.0-0.7); EOSINOPHILS % (AUTO) 0.6 %; HCT - HEMATOCRIT 39.3 % (42.0-52.0); LYMPHOCYTES # (AUTO) 2.5 10^3/uL (1.5-3.5); LYMPHOCYTES % (AUTO) 26.1 %; MEAN CORPUSCULAR HEMOGLOBIN 29.6 pg (27.0-31.0); MEAN CORPUSCULAR HGB CONC 33.1 g/dL (32.0-36.0); MEAN CORPUSCULAR VOLUME 89.5 fL (80.0-94.0); MONOCYTES % (AUTO) 10.7 %; NEUTROPHILS % (AUTO) 62.1 %; PLT - PLATELET COUNT 197 10^3/uL (130-450); RED BLOOD COUNT 4.39 10^6/uL (4.70-6.10); RED CELL DISTRIBUTION WIDTH 12.9 % (12.0-15.0); WHITE BLOOD COUNT 9.7 x10^3/uL (4.8-10.8)
[2020-09-28 19:44] LABS: ALBUMIN 4.2 g/dL (3.2-5.5); ALBUMIN/GLOBULIN RATIO 1.8 (1.0-2.2); BILIRUBIN,TOTAL 0.9 mg/dL (0.2-1.0); CALCIUM 8.4 mg/dL (8.5-10.3); CREATININE 1.4 mg/dL (0.6-1.2); POTASSIUM 3.7 mmol/L (3.5-5.0); TOTAL PROTEIN 6.5 g/dL (6.7-8.2)
[2020-09-28 20:25] VITALS: BP 125/68
== END 2020-09-28 20:13 | disposition home or self-care (01) ==
LOC: EDUNIT# → EDBD → ED 19:10
DX: R55 Syncope and collapse (principal); R79.89 Other specified abnormal findings of blood chemistry; R74.8 Abnormal levels of other serum enzymes; R74.01 Elevation of levels of liver transaminase levels
CPT/HCPCS: 36415; 80053; 83690; 85025; 93005; 99283; 99284

== ENCOUNTER 2020-10-21 13:18 | Outpatient (CLI) | payer OTHER | END 2020-10-21 13:19 | disposition short-term general hospital (02) | LOC: EMS 13:18 | DX: R45.89 Other symptoms and signs involving emotional state (principal) | CPT/HCPCS: A0425; A0429 ==

== ENCOUNTER 2020-12-19 20:14 | Outpatient (CLI) | payer OTHER | END 2020-12-19 20:15 | disposition short-term general hospital (02) | LOC: EMS 20:14 | DX: R55 Syncope and collapse (principal); R07.9 Chest pain, unspecified | CPT/HCPCS: A0425; A0427 ==

== ENCOUNTER 2021-02-01 08:46 | Outpatient (CLI) | payer OTHER | END 2021-02-01 08:47 | disposition EMS.NT | LOC: EMS 08:46 | DX: F41.9 Anxiety disorder, unspecified (principal) ==

== ENCOUNTER 2022-01-16 20:27 | Outpatient (CLI) | payer OTHER | END 2022-01-16 23:59 | disposition short-term general hospital (02) | LOC: EMS 20:27 | DX: R45.851 Suicidal ideations (principal); F41.9 Anxiety disorder, unspecified | CPT/HCPCS: A0425; A0429 ==

== ENCOUNTER 2022-03-25 08:00 | Outpatient (CLI) | payer OTHER ==
[2022-03-25 12:53] LABS: BASOPHILS % (AUTO) 0.3 %; EOSINOPHILS % (AUTO) 0.1 %; HCT - HEMATOCRIT 43.4 % (42.0-52.0); HGB - HEMOGLOBIN 14.6 g/dL (14.0-18.0); LYMPHOCYTES # (AUTO) 0.9 10^3/uL (1.5-3.5); LYMPHOCYTES % (AUTO) 8.9 %; MEAN CORPUSCULAR HEMOGLOBIN 29.3 pg (27.0-31.0); MEAN CORPUSCULAR HGB CONC 33.6 g/dL (32.0-36.0); MEAN CORPUSCULAR VOLUME 87.1 fL (80.0-94.0); MEAN PLATELET VOLUME 10.3 fL (7.4-11.4); MONOCYTES # (AUTO) 0.8 10^3/uL (0.0-1.0); MONOCYTES % (AUTO) 7.8 %; NEUTROPHILS # (AUTO) 8.6 10^3/uL (1.5-6.6); NEUTROPHILS % (AUTO) 82.7 %; PLT - PLATELET COUNT 217 10^3/uL (130-450); RED BLOOD COUNT 4.98 10^6/uL (4.70-6.10); RED CELL DISTRIBUTION WIDTH 12.9 % (12.0-15.0); WHITE BLOOD COUNT 10.4 x10^3/uL (4.8-10.8)
[2022-03-25 13:33] LABS: CALCIUM 9.1 mg/dL (8.5-10.3)
== END 2022-03-25 23:59 | disposition home or self-care (01) ==
LOC: LAB.N 08:00
PROVIDERS: ATTEND Physician Assistant
DX: R52 Pain, unspecified (principal)
CPT/HCPCS: 36415; 80048; 85025

== ENCOUNTER 2022-04-14 18:37 | Outpatient (CLI) | payer OTHER ==
[2022-04-14] MEDS ORDERED: iohexoL-300 100 ML VIAL ONE ×2 (18:47→19:19)
[2022-04-14] MEDS ORDERED: iohexoL-300 100 ML VIAL IVP ONE (21:13)
--- NOTE | 2022-04-15 11:46 | CT Report ---
PROCEDURE: Maxillofacial CT with contrast INDICATIONS: SINUS MASS CONTRAST: 100mL Omni 300 TECHNIQUE: After the administration of intravenous contrast, 3.0 mm axial sections acquired from the mid-neck to the frontal sinuses, with coronal reformatting. For radiation dose reduction, the following was use d: automated exposure control, adjustment of mA and/or kV according to patient size. COMPARISON: None. FINDINGS: Image quality: Excellent. Soft tissues: No edema, masses, or fluid collections. No enlarged lymph nodes. Vascular: Visualized vascular structures appear patent throughout. Bony vascular foramina and canal s appear normal. Bones: Associated with the left last maxillary molar, there is an expansile cystic structure which co mmunicates with the oral cavity, and protrudes into the maxillary sinus. Lesion measures 1.7 x 1.6 x 2.2 cm. Internal air present. Sinuses: As above. Right sphenoid retention cyst measures 2.7 cm. Remainder the paranasal sinuses are clear. IMPRESSION: 1. Expansile 2.2 cm lesion associated with the last left maxillary molar is most likely odontogenic i n origin, and appears to communicate with the oral cavity. Consider dental consult 2. Right sphenoid sinus retention cyst Reviewed by: Garfield Doshi MD on 04/15/2022 10:44 AM [facility] Approved by: Garfield Doshi MD on 04/15/2022 10:44 AM [facility] Station ID: [id number]
== END 2022-04-14 18:38 | disposition home or self-care (01) ==
LOC: DI 18:37
PROVIDERS: ATTEND Dentist Oral and Maxillofacial Surgery
DX: R93.7 Abnormal findings on diagnostic imaging of other parts of musculoskeletal system (principal); R93.0 Abnormal findings on diagnostic imaging of skull and head, not elsewhere classified; J34.1 Cyst and mucocele of nose and nasal sinus
CPT/HCPCS: 70487; Q9967

== ENCOUNTER 2022-05-31 05:54 | Day surgery (SDC) | payer OTHER ==
[2022-05-31] MEDS ORDERED: LACTATED RINGERS 1,000 ML IV ONE ×2 (06:36→09:32)
--- NOTE | 2022-05-31 06:50 | ANESTHESIA ---
Pre-Anesthesia VS, & Labs - Diagnosis Odontogenic Cyst - Procedure Excision cyst from maxilla Vital Signs: Temp Pulse Resp BP Pulse Ox O2 Flow Rate 36.5 C 42 L 14 107/69 98 05/31/22 06:17 05/31/22 06:17 05/31/22 06:17 05/31/22 06:17 05/31/22 06:17 Height: 5 ft 11 in Weight (kg): 87.3 kg Body Mass Index: 26.8 BMI Classification: Overweight - NPO >8 hours - Lab Results Lab results reviewed: Yes Home Medications and Allergies Home Medications: Ambulatory Orders DULoxetine [Cymbalta] 20 mg PO DAILY 05/27/22 DULoxetine [Cymbalta] 20 mg PO DAILY 05/27/22 Allergies/Adverse Reactions: Allergies Allergy/AdvReac Type Severity Reaction Status Date / Time latex Allergy Hives Verified 05/31/22 06:38 shellfish derived Allergy Unknown Verified 05/31/22 06:26 Anes History & Medical History - Anesthetic History Anesthesia Complications: reports: No previous complications Family history of Anesthesia Complications: Denies Family history of Malignant Hyperthermia: Denies - Medical History Cardiovascular: reports: None Pulmonary: reports: Sleep apnea, CPAP use Gastrointestinal: reports: None Urinary: reports: None Musculoskeletal: reports: None Endocrine/Autoimmune: reports: None Blood Disorders: reports: None Skin: reports: None Smoking Status: Never smoker - Surgical History Other Past Surgical History: wison teeth extraction, maxilla cyst biopsy Exam General: Alert, Oriented x3, Cooperative Dental: WNL Mouth Openin Fingerbreadth Neck Mobility: Normal Mallampati classification: III Thyromental Distance: 4-6 cm Respiratory: Lungs clear, Normal breath sounds, No respiratory distress, No accessory muscle use Cardiovascular: Other (suleiman 40s) Neurological: Normal speech Mental/Cognitive Status: Alert/Oriented X3, Normal for patient Cognitive Status: Within normal limits Plan Anesthesia Type: General Consent for Procedure(s) Verified and Reviewed: Yes Code Status: Attempt Resuscitation ASA classification: 2-Mild systemic disease Is this case an emergency?: No
[2022-05-31] MEDS ORDERED: ATROPINE ABBOJECT 1 MG/10 ML SYRINGE IVP PRN (07:00)
[2022-05-31] MEDS ORDERED: HYDROmorphone 0.5 MG/0.5 ML SYRINGE IVP PRN (07:00)
[2022-05-31] MEDS ORDERED: NALOXONE 0.4 MG/ML VIAL IVP PRN (07:00)
[2022-05-31] MEDS ORDERED: fentaNYL 100 MCG/2 ML VIAL IVP PRN (07:00)
[2022-05-31] MEDS ORDERED: MORPHINE 2 MG/ML CARPUJECT IVP PRN ×2 (07:00→07:49)
[2022-05-31] MEDS ORDERED: LACTATED RINGERS 1,000 ML IV SCH (07:00)
[2022-05-31] MEDS ORDERED: ePHEDrine 50 MG/ML VIAL IVP PRN (07:00)
[2022-05-31] MEDS ORDERED: ONDANSETRON 4 MG/2 ML VIAL IVP PRN ×2 (07:00→07:49)
[2022-05-31] MEDS ORDERED: MIDAZOLAM 2 MG/2 ML VIAL ONE (07:10)
[2022-05-31] MEDS ORDERED: PROPOFOL 200 MG/20 ML VIAL IVP ONE ×2 (07:11→07:58)
[2022-05-31] MEDS ORDERED: LIDOCAINE-PF 2% 10 ML AMP SUBQ ONE (07:11)
[2022-05-31] MEDS ORDERED: ROCURONIUM 50 MG/5 ML VIAL ONE (07:12)
[2022-05-31] MEDS ORDERED: LIDOCAINE-MPF 0.5% 50 ML VIAL ONE (07:20)
[2022-05-31] MEDS ORDERED: CHLORHEXIDINE GLUCONATE 15 ML UDC PO ONE (07:21)
[2022-05-31] MEDS ORDERED: KETOROLAC 30 MG/ML VIAL IVP PRN (07:49)
[2022-05-31] MEDS ORDERED: GLYCOPYRROLATE 1 MG/5 ML VIAL ONE (07:51)
[2022-05-31] MEDS ORDERED: DEXAMETHASONE 4 MG/ML VIAL ONE (08:04)
[2022-05-31] MEDS ORDERED: BUPIVACAINE 0.25% PF 30 ML VIAL ONE (08:24)
[2022-05-31] MEDS ORDERED: ACETAMINOPHEN 1,000 MG/100 ML 1,000 MG/100 ML BAG IV ONE (08:24)
[2022-05-31] MEDS ORDERED: LIDOCAINE-MPF 0.5% 50 ML VIAL SUBQ ONE ×2 (08:29)
[2022-05-31] MEDS ORDERED: BUPIVACAINE 0.25% PF 30 ML VIAL SUBQ ONE ×2 (08:30→09:15)
[2022-05-31] MEDS ORDERED: PHENYLEPHRINE 10 MG/ML VIAL ONE (08:38)
[2022-05-31] MEDS ORDERED: SUGAMMADEX 200 MG/2 ML VIAL IVP ONE (08:59)
[2022-05-31] MEDS ORDERED: KETOROLAC 30 MG/ML VIAL ONE (09:09)
[2022-05-31] MEDS ORDERED: LIDOCAINE MPF 2%-EPI 1:200000 20 ML VIAL SUBQ ONE (09:15)
[2022-05-31] MEDS ORDERED: LIDOCAINE MPF 2%-EPI 1:200000 20 ML VIAL ONE (09:24)
--- NOTE | 2022-05-31 09:45 | OPERATIVE REPORT ---
Operative Report - General Procedure Date: 05/31/22 Planned Procedure: 1. Removal of 2.5 cm odontogenic keratocyst from the left maxillary sinus and left maxillary tuberosity region. 2. Peripheral ostectomy 3. Removal of tooth number#15 4. Reconstruction of oral antral fistula with rotational soft tissue flap of the buccal fat pad Pre-Op Diagnosis: odontogenic keratocyst left maxillary sinus Procedure Performed: 1. Removal of 2.5 cm odontogenic keratocyst from the left maxillary sinus and left maxillary tuberosity region. 2. Peripheral ostectomy 3. Removal of tooth number#15 4. Reconstruction of oral antral fistula with rotational soft tissue flap of the buccal fat pad Post Op Diagnosis: odontogenic keratocyst left maxillary sinus - Procedure Note Primary Surgeon: Marshall Holguin DDS Anesthesia Provider: MOJGAN Ayala Anesthesia Technique: General ET tube ( taped to the right side of the mouth) Pathology: 1. Odontogenic keratocyst from left maxillary sinus 2. Soft tissue overlying the odontogenic keratocyst where the cyst had caused perforation into the mouth Estimated Blood Loss (mL): 50 Indications: this is a 36-year-old male who presented to my clinic with a radiolucency of the left maxillary sinus. The lesion was biopsied and found to be an odontogenic keratocyst. It was decided that the cyst needed to be removed completely and the defect needed to be repaired. Also the cyst was intimately associated with the apex of tooth #15 and complete removal of the cyst would be impossible without removal of tooth #15. It was decided to remove tooth #15 as well. The risks benefits and alternatives of this procedure were discussed with the patient including pain, swelling, bleeding, need for further surgeries, permanent oral antral fistula, nerve damage, poor cosmesis, recurrence of the cyst. Adequate time was given to answer all questions and informed consent was obtained. Findings: The patient was brought to the main operating room and placed in a supine position on the operating table. General anesthesia was induced by the anesthesia team and the airway was secured with an oral endotracheal tube which was secured to the right side of the face with tape. The patient's face was prepped and draped in the standard sterile fashion after all pressure points were padded and checked and the arms were tucked. A formal timeout was executed. 1 Ray-Erik was placed in the throat for throat pack. Local anesthesia was achieved with 7 cc of half percent Hepper's half percent lidocaine and then later with 10 cc of a 50-50 mixture of 2% lidocaine with epinephrine mixed with quarter percent Marcaine. Attention was directed to the left maxilla. A crestal incision with a distobuccal release was made. The knife blade dropped into the cyst cavity. A buccal full-thickness flap was elevated. The first step of the procedure was to find all the bony margins around the cyst. This was difficult in the area of the pterygoid plates but it was successfully accomplished and intact bony daugherty surrounding the entire cyst were identified and a subperiosteal plane was created around the entire bony defect. Bone was then removed around tooth #15 and the tooth was removed in pieces. The distal root which was entangled in the cyst was submitted as a portion of the specimen. A series of curettes was then used to remove the cyst from the maxillary sinus. The cyst was removed whole except where portions of it had remained attached to the soft tissue of the buccal mucosa or of the oral mucosa. A football bur was then used to perform a peripheral ostectomy moving in a an or ganized pattern from the lateral plate of the maxilla up to the superior bony wall of the cyst which had created a semiperforated barrier between the cyst and the maxillary sinus cavity and then posteriorly to the pterygoid plate region then medially to the palatal region. During this portion of the peripheral ostectomy the greater [place] artery nerve and vein bundle was encountered.It was decided to place 2 hemoclips on this vascular bundle to prevent postoperative bleeding. After the clips were placed good hemostasis was appreciated. The peripheral ostectomy was then completed on the anterior portion of the cyst defect. The next step in removal of the cyst was to remove the soft tissue of the oral mucosa where the cyst had perforated through the maxilla and was now adhered to the oral mucosa. This was performed with scissors and with electrocautery. The wound was irrigated copiously. This marked the end of the resection of the cyst and the beginning of the reconstructive portion of the procedure. The first step in reconstruction of this defect was to allow the buccal mucosa flap which had been elevated at the beginning of the procedure to drape passively over the defect. This was accomplished by scoring the periosteum of the flap. The buccal soft tissue could then draped in a tensionless fashion over the defect. The next step was to mobilize and rotate the buccal fat pad. The buccal fat pad was easily encountered with blunt dissection and the pterygoid plate area. The buccal fat pad was generous and prolapsed easily into the wound. Mattress sutures with 4-0 Vicryl suture were used to secure the buccal fat pad in a tensionless fashion to the palatal soft tissue. The buccal full-thickness flap was then advanced over the wound and closed to the palatal soft tissue with 4-0 Vicryl suture in a tensionless fashion. This marked the end of the procedure. The mouth was cleansed. The throat pack was removed. The airway was suctioned. Care of the patient was returned to the anesthesia team with the patient in stable condition. The patient was transferred to the PACU in stable condition. Complications: none
[2022-05-31 10:11] VITALS: BP 134/69
--- NOTE | 2022-05-31 12:23 | ANESTHESIA POST OP EVALUATION ---
Anesthesia Post Eval - Post Anesthesia Eval Vitals: Last Vital Signs Temp 36.6 C 05/31/22 10:10 Pulse 54 L 05/31/22 10:10 Resp 18 05/31/22 10:10 BP 134/69 H 05/31/22 10:10 Pulse Ox 97 05/31/22 10:10 O2 Flow Rate CV Function Including HR & BP: Stable Pain Control: Satisfactory Nausea & Vomiting: Negative Mental Status: Baseline Respiratory Status: Airway Patent Hydration Status: Satisfactory Anesthesia Complications: None
== END 2022-05-31 05:55 | disposition home or self-care (01) ==
LOC: SDS 05:54
PROVIDERS: ATTEND Dentist Oral and Maxillofacial Surgery
PROC: 0JR107Z Replacement of Face Subcutaneous Tissue and Fascia with Autologous Tissue Substitute, Open Approach (ICD-10-PCS; 2022-05-31)
PROC: 0NBR0ZZ Excision of Maxilla, Open Approach (ICD-10-PCS; principal; 2022-05-31 07:30)
DX: K09.0 Developmental odontogenic cysts (principal); D16.4 Benign neoplasm of bones of skull and face; G47.30 Sleep apnea, unspecified
CPT/HCPCS: 21048; 30580; J0131; J3490; J7120

== ENCOUNTER 2022-05-31 14:48 | Outpatient (CLI) | payer OTHER | END 2022-05-31 14:49 | disposition EMS.NT | LOC: EMS 14:48 | DX: R04.0 Epistaxis (principal) ==

== ENCOUNTER 2022-08-30 11:21 | Outpatient (CLI) | payer OTHER | END 2022-08-30 11:22 | disposition left against medical advice (07) | LOC: EMS 11:21 | DX: R07.89 Other chest pain (principal); F41.9 Anxiety disorder, unspecified ==

== ENCOUNTER 2023-01-29 11:51 | Outpatient (CLI) | payer OTHER | END 2023-01-29 23:59 | disposition short-term general hospital (02) | LOC: EMS 11:51 | DX: R45.851 Suicidal ideations (principal); Z56.0 Unemployment, unspecified; Z65.3 Problems related to other legal circumstances | CPT/HCPCS: A0425; A0429 ==

== ENCOUNTER 2023-07-06 09:21 | Outpatient (CLI) | payer OTHER | END 2023-07-06 23:59 | disposition short-term general hospital (02) | LOC: EMS 09:21 | DX: R45.851 Suicidal ideations (principal) | CPT/HCPCS: A0425; A0429 ==